=== PATIENT | female | born 1960 | race African-American/Black ===

== ENCOUNTER 2018-06-03 09:30 | Day surgery (SDC) | payer BC, MEDICARE ==
[2018-06-01 15:50] VITALS: BP 148/79
[2018-06-01 15:59] LABS: BASOPHILS % (AUTO) 0.4 % (0.0-5.0); EOSINOPHILS % (AUTO) 2.5 % (0.0-8.0); HEMATOCRIT 29.5 % (36-48); LYMPHOCYTES % (AUTO) 28.3 % (21.0-51.0); MEAN CORPUSCULAR HEMOGLOBIN 30.2 pg (27.0-33.0); MEAN CORPUSCULAR VOLUME 94.2 fL (79-99); MONOCYTES % (AUTO) 11.1 % (3.0-13.0); NEUTROPHILS % (AUTO) 57.7 % (40.0-77.0); NUCLEATED RED BLOOD CELLS 0.8 % (0.0-0.19); PLATELET COUNT (AUTO) 139 K/uL (130-400); RED BLOOD CELL COUNT(AUTO) 3.13 MIL/uL (4.00-5.50); RED CELL DISTRIBUTION WIDTH 18.2 % (11.0-15.5); WHITE BLOOD COUNT (AUTO) 4.8 K/uL (4.8-10.8)
[2018-06-01 16:02] LABS: APPEARANCE,URINE Clear (CLEAR); BILIRUBIN,URINE Negative (NEGATIVE); COLOR,URINE Yellow (YELLOW); GLUCOSE, URINE (UA) TRACE mg/dL (NEGATIVE); KETONES,URINE Negative (NEGATIVE); LEUKOCYTE ESTERASE ,URINE Negative (NEGATIVE); NITRATE,URINE Negative (NEGATIVE); OCCULT BLOOD,URINE Trace (NEGATIVE); PH,URINE >=9.0 (5.0-8.0); PROTEIN,URINE POS 2+ (NEGATIVE); UROBILINOGEN,URINE 0.2 mg/dL (0.2-1.0)
[2018-06-01 16:10] LABS: CREATININE 6.9 mg/dL (0.5-1.5); POTASSIUM 3.3 mmol/L (3.5-5.1)
[2018-06-01 16:12] LABS: INR 0.95 (0.85-1.15); PARTIAL THROMBOPLASTIN TIME 26.6 SEC (26.3-35.5)
[2018-06-01 16:18] LABS: BACTERIA,URINE None Seen /HPF (None Seen); RBC,URINE 0-1 /HPF (0-1); SQUAMOUS EPITHELIAL CELL,UR Few /HPF (0-2); WBC,URINE None Seen /HPF (0-1)
[2018-06-03] VITALS (10 sets, daily range): BP systolic 122–183; BP diastolic 71–90
[~2018-06-03] VITALS: Ht 165.1 cm; Wt 69.4 kg
[~2018-06-03 09:30] MED LIST: AEC81 PO; CLOP75TA14 PO; OMEP20TA25 PO; PRAV40TA3 PO; SODIUM CHLORIDE 0.9% 1000ML 1,000 ML IV SCH; metoprolol PO
[2018-06-03] MEDS ORDERED: IOHEXOL 350 MG/ML 100ML INFUS..BTL IV ONE (12:15)
[2018-06-03] MEDS ORDERED: NITROGLYCERIN 5 MG/ML 10 ML VIAL IV ONE (12:15)
[2018-06-03] MEDS ORDERED: BIVALIRUDIN 250 MG/VIAL IV ONE (12:15)
[2018-06-03] MEDS ORDERED: IOHEXOL-350 50ML VIAL IV ONE (12:16)
[2018-06-03] MEDS ORDERED: LIDOCAINE HCL 2% 20ML ONE (12:16)
[2018-06-03] MEDS ORDERED: MIDAZOLAM HCL 1 MG/ML 2ML VIAL ONE (12:30)
[2018-06-03] MEDS ORDERED: LABETALOL HCL 5 MG/ML 20ML VIAL IV ONE (13:11)
[2018-06-03] MEDS ORDERED: AMLODIPINE BESYLATE 5 MG TAB PO ONE (14:49)
[2018-06-03] MEDS ORDERED: AMLODIPINE BESYLATE 5 MG TAB PO SCH (15:15)
== END 2018-06-03 18:08 | disposition home or self-care (01) ==
LOC: DAH 09:30
PROVIDERS: ATTEND Internal Medicine Cardiovascular Disease
DX: I25.10 Atherosclerotic heart disease of native coronary artery without angina pectoris (principal); Z95.5 Presence of coronary angioplasty implant and graft; Z98.890 Other specified postprocedural states; Z79.899 Other long term (current) drug therapy; I24.9 Acute ischemic heart disease, unspecified; I13.2 Hypertensive heart and chronic kidney disease with heart failure and with stage 5 chronic kidney disease, or end stage renal disease; N18.6 End stage renal disease; I50.32 Chronic diastolic (congestive) heart failure; Z99.2 Dependence on renal dialysis; Z88.0 Allergy status to penicillin; Z90.710 Acquired absence of both cervix and uterus; Z98.51 Tubal ligation status; D69.6 Thrombocytopenia, unspecified; E78.5 Hyperlipidemia, unspecified; M32.9 Systemic lupus erythematosus, unspecified
CPT/HCPCS: 36415; 71045; 80048; 81001; 85025; 85610; 85730; 93005; 93458; A4606; C1760; C1894; J1644; J2250; J3490 ×3; J7030; Q9965; Q9967 ×2; 99156; 99157; J0583

== ENCOUNTER 2021-06-29 11:45 | Emergency (ER) | payer MEDICARE, OTHER ==
[~2021-06-29] VITALS: Ht 165.1 cm; Wt 63.5 kg
[~2021-06-29 11:45] MED LIST changes: -CLOP75TA14 PO; -SODIUM CHLORIDE 0.9% 1000ML 1,000 ML IV SCH
[2021-06-29] MEDS ORDERED: 0.9% NACL 250ML 250 ML IV SCH (12:00)
[2021-06-29] MEDS ORDERED: LORAZEPAM 2 MG/ML 1 ML VIAL IVP ONE (12:00)
[2021-06-29 12:04] LABS: BASOPHILS % (AUTO) 0.4 % (0.0-5.0); EOSINOPHILS % (AUTO) 2.1 % (0.0-8.0); LYMPHOCYTES % (AUTO) 27.8 % (21.0-51.0); MEAN CORPUSCULAR HEMOGLOBIN 28.9 pg (27.0-33.0); MEAN CORPUSCULAR HGB CONC 31.7 g/dL (32.0-36.0); MEAN CORPUSCULAR VOLUME 91.1 fL (79-99); MONOCYTES % (AUTO) 12.9 % (3.0-13.0); NEUTROPHILS % (AUTO) 55.8 % (40.0-77.0); PLATELET COUNT (AUTO) 250 K/uL (130-400); RED BLOOD CELL COUNT(AUTO) 3.95 MIL/uL (4.00-5.50); WHITE BLOOD COUNT (AUTO) 5.2 K/uL (4.8-10.8)
[2021-06-29 12:19] LABS: CREATININE 6.1 mg/dL (0.5-1.5)
[2021-06-29 12:24] LABS: BILIRUBIN,TOTAL 0.3 mg/dL (0.2-1.0); TOTAL PROTEIN, SERUM 8.6 g/dL (6.0-8.3)
[2021-06-29] MEDS ORDERED: HYDR-3421 PO (13:25)
[2021-06-29] MEDS ORDERED: CYCL10TA16 PO (13:25)
[2021-06-29] MEDS ORDERED: ACET-2247 PO (13:25)
[2021-06-29] MEDS ORDERED: LIDOP TP (13:25)
[2021-06-29 14:07] VITALS: BP 95/53
== END 2021-06-29 14:30 | disposition home or self-care (01) ==
LOC: EDH 11:45
DX: S16.1XXA Strain of muscle, fascia and tendon at neck level, initial encounter (principal); F41.9 Anxiety disorder, unspecified; I12.0 Hypertensive chronic kidney disease with stage 5 chronic kidney disease or end stage renal disease; N18.6 End stage renal disease; D63.1 Anemia in chronic kidney disease; E78.5 Hyperlipidemia, unspecified; I25.2 Old myocardial infarction; Z88.0 Allergy status to penicillin; Z79.82 Long term (current) use of aspirin; Z79.899 Other long term (current) drug therapy; Z90.49 Acquired absence of other specified parts of digestive tract; Z95.5 Presence of coronary angioplasty implant and graft; Z99.2 Dependence on renal dialysis; X58.XXXA Exposure to other specified factors, initial encounter; Y93.89 Activity, other specified; Y92.89 Other specified places as the place of occurrence of the external cause; Y99.8 Other external cause status
CPT/HCPCS: 36415; 71045; 80053; 84484; 85025; 93005; 96374; 99285; J2060

== ENCOUNTER 2021-08-18 18:09 | Emergency (ER) | payer OTHER ==
[~2021-08-18] VITALS: Ht 162.6 cm; Wt 64.9 kg
[~2021-08-18 18:09] MED LIST changes: +ACET-2247 PO; +CYCL10TA16 PO; +HYDR-3421 PO; +LIDOP TP
[2021-08-18] MEDS ORDERED: PHENAZOPYRIDINE HCL 200 MG TABLET PO ONE (18:30)
[2021-08-18 19:21] LABS: APPEARANCE,URINE TURBID (CLEAR); BILIRUBIN,URINE NEGATIVE (NEGATIVE); COLOR,URINE RED (YELLOW); GLUCOSE, URINE (UA) 100 mg/dL (NEGATIVE); KETONES,URINE NEGATIVE (NEGATIVE); LEUKOCYTE ESTERASE ,URINE TRACE (NEGATIVE); NITRATE,URINE POSITIVE (NEGATIVE); OCCULT BLOOD,URINE LARGE (NEGATIVE); PROTEIN,URINE >=300 mg/dL (NEGATIVE); UROBILINOGEN,URINE 0.2 mg/dL (0.2-1.0)
[2021-08-18] MEDS ORDERED: CEFTRIAXONE 1G VIAL IM ONE (19:30)
[2021-08-18 19:39] LABS: RBC,URINE TNTC /HPF (0-1)
[2021-08-18] MEDS ORDERED: CEPH500B PO (19:39)
[2021-08-18] MEDS ORDERED: PHEN-847 PO (19:39)
[2021-08-18 19:40] LABS: BACTERIA,URINE Few /HPF (None Seen)
[2021-08-18 19:43] LABS: SQUAMOUS EPITHELIAL CELL,UR Few /HPF (0-2)
[2021-08-18 20:15] VITALS: BP 156/87
[2021-08-25] MEDS ORDERED: CARV12.511 PO (17:15)
[2021-08-25] MEDS ORDERED: AMLO-258 PO (17:15)
[2021-08-25] MEDS ORDERED: FERR210T PO (17:16)
[2021-08-25] MEDS ORDERED: CLON0.1T PO (17:16)
[2021-08-25] MEDS ORDERED: HYDR200T4 PO (17:16)
[2021-08-25] MEDS ORDERED: FOLI1TAB61 PO (17:16)
[2021-08-25] MEDS ORDERED: ROPI0.5T7 PO (17:16)
[2021-08-25] MEDS ORDERED: PHOSLOC PO (17:16)
[2021-08-25] MEDS ORDERED: MONT-39 PO (17:16)
[2021-08-28] MEDS ORDERED: AMIO200T44 PO (09:39)
[2021-08-28] MEDS ORDERED: CARV6.2579 PO (09:39)
[2021-08-28] MEDS ORDERED: LEVO500T90 PO (09:39)
[2021-08-28] MEDS ORDERED: APIX5TAB PO (09:47)
== END 2021-08-18 20:20 | disposition home or self-care (01) ==
LOC: EDH 18:09
DX: N39.0 Urinary tract infection, site not specified (principal); E78.00 Pure hypercholesterolemia, unspecified; I10 Essential (primary) hypertension; Z79.82 Long term (current) use of aspirin; Z79.899 Other long term (current) drug therapy; Z88.0 Allergy status to penicillin; Z90.49 Acquired absence of other specified parts of digestive tract
CPT/HCPCS: 81001; 87088; 87486; 87797; 96372; 99283; J0696

== ENCOUNTER 2021-08-30 15:10 | Observation (INO) | payer OTHER ==
[~2021-08-30] VITALS: Ht 157.5 cm; Wt 61.3 kg
[~2021-08-30 15:10] MED LIST changes: -ACET-2247 PO; -AEC81 PO; +AMIO200T44 PO; +APIX5TAB PO; +CARV6.2579 PO; -CYCL10TA16 PO; +FERR210T PO; +FOLI1TAB61 PO; -HYDR-3421 PO; +HYDR200T4 PO; +LEVO500T90 PO; -LIDOP TP; +MONT-39 PO; +PHOSLOC PO; -PRAV40TA3 PO; +ROPI0.5T7 PO; -metoprolol PO
[2021-08-30 15:24] LABS: BASOPHILS % (AUTO) 0.6 % (0.0-5.0); EOSINOPHILS % (AUTO) 0.2 % (0.0-8.0); HEMATOCRIT 31.3 % (36-48); LYMPHOCYTES % (AUTO) 20.9 % (21.0-51.0); MEAN CORPUSCULAR HEMOGLOBIN 28.7 pg (27.0-33.0); MEAN CORPUSCULAR HGB CONC 31.3 g/dL (32.0-36.0); MEAN CORPUSCULAR VOLUME 91.8 fL (79-99); MONOCYTES % (AUTO) 13.7 % (3.0-13.0); NEUTROPHILS % (AUTO) 63.4 % (40.0-77.0); NUCLEATED RED BLOOD CELLS 0.7 % (0.0-0.19); PLATELET COUNT (AUTO) 344 K/uL (130-400); RED BLOOD CELL COUNT(AUTO) 3.41 MIL/uL (4.00-5.50); RED CELL DISTRIBUTION WIDTH 14.8 % (11.0-15.5); WHITE BLOOD COUNT (AUTO) 8.5 K/uL (4.8-10.8)
[2021-08-30 15:37] LABS: INR 1.16 (0.85-1.15); PROTHROMBIN TIME 12.5 SEC (9.6-11.6)
[2021-08-30 15:38] LABS: PARTIAL THROMBOPLASTIN TIME 32.4 SEC (26.3-35.5)
[2021-08-30 15:45] LABS: ALBUMIN 2.6 g/dL (3.5-5.0); BILIRUBIN,TOTAL 0.5 mg/dL (0.2-1.0); POTASSIUM 4.9 mmol/L (3.5-5.1); TOTAL PROTEIN, SERUM 8.6 g/dL (6.0-8.3)
[2021-08-30 15:52] LABS: CREATININE 8.3 mg/dL (0.5-1.5)
[2021-08-30] MEDS ORDERED: MORPHINE 2 MG SYG ONE (15:53)
[2021-08-30] MEDS ORDERED: ONDANSETRON 4MG INJ ONE (15:53)
[2021-08-30 16:00] LABS: B-TYPE NATRIURETIC PEPTIDE > 5000 pg/mL (0-100)
[2021-08-30] MEDS ORDERED: MORPHINE 2 MG SYG IVP ONE (16:00)
[2021-08-30] MEDS ORDERED: 0.9% NACL 250ML 250 ML IV ONE (16:00)
[2021-08-30] MEDS ORDERED: ONDANSETRON 4MG INJ IVP ONE (16:00)
[2021-08-30] MEDS ORDERED: ASPIRIN 81 MG EC TAB PO ONE (17:00)
[2021-08-30] MEDS ORDERED: LEVOFLOXACIN 500 MG TABLET PO SCH (18:00)
[2021-08-30] MEDS ORDERED: NITROGLYCERIN 0.4 MG SL TAB SL PRN (18:00)
[2021-08-30] MEDS ORDERED: AMIODARONE 900MG VIAL 150 MG in DEXTROSE 5%-WATER 100 ML IV SCH (19:10)
[2021-08-30 19:20] LABS: CHOLESTEROL 161 mg/dL (<200); HDL CHOLESTEROL 50 mg/dL (35-85); LDL DIRECT 92 mg/dL (0-99); TRIGLYCERIDES 79 mg/dL (30-200)
[2021-08-30] MEDS ORDERED: PANTOPRAZOLE 40 MG TAB DR PO SCH (19:30)
[2021-08-30] MEDS ORDERED: APIXABAN 2.5 MG TABLET PO ONE (19:49)
[2021-08-30] MEDS: APIXABAN 5 MG TABLET PO SCH (19:50)
[2021-08-30] MEDS: METOPROLOL TARTRATE 50 MG TAB PO SCH (20:14)
[2021-08-30] MEDS ORDERED: AMIODARONE 150MG VIAL IV ONE (21:00)
[2021-08-30 22:25] VITALS: BP 120/68
[2021-08-30] MEDS ORDERED: METO50TA18 PO (22:37)
[2021-08-31] VITALS (20 sets, daily range): BP systolic 104–142; BP diastolic 54–80
[2021-08-31] MEDS: FERRIC CITRATE 210 MG PO SCH ×3 (06:35→17:00)
[2021-08-31] MEDS: CALCIUM AC 667MG CAP PO SCH ×3 (07:05→16:39)
[2021-08-31 08:19] LABS: BASOPHILS % (AUTO) 0.9 % (0.0-5.0); EOSINOPHILS % (AUTO) 0.9 % (0.0-8.0); HEMATOCRIT 29.1 % (36-48); LYMPHOCYTES % (AUTO) 24.3 % (21.0-51.0); MEAN CORPUSCULAR HEMOGLOBIN 28.5 pg (27.0-33.0); MEAN CORPUSCULAR HGB CONC 31.6 g/dL (32.0-36.0); MEAN CORPUSCULAR VOLUME 90.1 fL (79-99); MONOCYTES % (AUTO) 15.4 % (3.0-13.0); NEUTROPHILS % (AUTO) 56.9 % (40.0-77.0); NUCLEATED RED BLOOD CELLS 0.3 % (0.0-0.19); PLATELET COUNT (AUTO) 280 K/uL (130-400); RED BLOOD CELL COUNT(AUTO) 3.23 MIL/uL (4.00-5.50); RED CELL DISTRIBUTION WIDTH 14.7 % (11.0-15.5); WHITE BLOOD COUNT (AUTO) 9.2 K/uL (4.8-10.8)
[2021-08-31 08:29] LABS: MAGNESIUM 2.4 mg/dL (1.80-2.40); POTASSIUM 5.2 mmol/L (3.5-5.1)
[2021-08-31 08:41] LABS: CREATININE 10.3 mg/dL (0.5-1.5)
[2021-08-31] MEDS ORDERED: AMIO200T44 PO (08:48)
[2021-08-31] MEDS ORDERED: METO50TA18 PO (08:48)
[2021-08-31] MEDS ORDERED: LEVOFLOXACIN 500 MG TABLET PO SCH (09:00)
[2021-08-31] MEDS: METOPROLOL TARTRATE 50 MG TAB PO SCH ×2 (09:00→22:44)
[2021-08-31] MEDS: AMIODARONE 200 MG TABLET PO SCH ×2 (09:00→22:44)
[2021-08-31] MEDS: Vitamin B Complex/Vit C/Folic Acid PO SCH (11:04)
[2021-08-31] MEDS: APIXABAN 5 MG TABLET PO SCH ×2 (11:05→22:44)
[2021-08-31] MEDS: MONTELUKAST SODIUM 10 MG TAB PO SCH (11:06)
[2021-08-31] MEDS: PANTOPRAZOLE 40 MG TAB DR PO SCH (11:06)
[2021-08-31] MEDS ORDERED: MIDODRINE HCL 5 MG TABLET PO PRN (16:30)
[2021-08-31] MEDS ORDERED: EPOETIN ALFA-EPBX (ESRD) 10,000 UNIT/ML VIAL IV ONE (21:00)
[2021-09-01 04:19] VITALS: BP 114/65
[2021-09-01] MEDS: HYDROMORPHONE 0.5 MG SYG (0.5MG/0.5ML) IVP PRN ×2 (05:28→11:55)
[2021-09-01 05:33] LABS: HEMATOCRIT 28.2 % (36-48); MEAN CORPUSCULAR HEMOGLOBIN 28.1 pg (27.0-33.0); MEAN CORPUSCULAR HGB CONC 31.2 g/dL (32.0-36.0); MEAN CORPUSCULAR VOLUME 90.1 fL (79-99); NUCLEATED RED BLOOD CELLS 1.4 % (0.0-0.19); PLATELET COUNT (AUTO) 305 K/uL (130-400); RED BLOOD CELL COUNT(AUTO) 3.13 MIL/uL (4.00-5.50); RED CELL DISTRIBUTION WIDTH 14.7 % (11.0-15.5); WHITE BLOOD COUNT (AUTO) 7.6 K/uL (4.8-10.8)
[2021-09-01 05:54] LABS: CREATININE 6.8 mg/dL (0.5-1.5); PHOSPHORUS 4.2 mg/dL (2.5-4.9); POTASSIUM 4.1 mmol/L (3.5-5.1)
[2021-09-01 06:05] LABS: BAND NEUTROPHILS % (MANUAL) 1 % (0-2); BASOPHILS % (MANUAL) 2 % (0-2); EOSINOPHILS % (MANUAL) 1 % (1-6); LYMPHOCYTES % (MANUAL) 30 % (22-44); MAN.DIFF COMMENT-IMPRESSION MANUAL DIFFERENTIAL; MONOCYTES % (MANUAL) 17 % (2-9); SEGMENTED NEUTROPHILS % 49 % (40-70)
[2021-09-01] MEDS: FERRIC CITRATE 210 MG PO SCH ×2 (07:30→10:32)
[2021-09-01 07:43] VITALS: BP 94/59
[2021-09-01] MEDS: AMIODARONE 200 MG TABLET PO SCH (08:19)
[2021-09-01] MEDS: Vitamin B Complex/Vit C/Folic Acid PO SCH (08:19)
[2021-09-01] MEDS: PANTOPRAZOLE 40 MG TAB DR PO SCH (08:19)
[2021-09-01] MEDS: APIXABAN 5 MG TABLET PO SCH (08:19)
[2021-09-01] MEDS: CALCIUM AC 667MG CAP PO SCH ×2 (08:20→11:50)
[2021-09-01] MEDS: MONTELUKAST SODIUM 10 MG TAB PO SCH (08:20)
[2021-09-01] MEDS: METOPROLOL TARTRATE 50 MG TAB PO SCH (09:00)
[2021-09-01 12:00] VITALS: BP 96/53
[2021-09-01] MEDS ORDERED: PHENAZOPYRIDINE HCL 200 MG TABLET PO ONE (13:30)
[2021-09-05] MEDS ORDERED: D-ME118S47 PO (13:10)
== END 2021-09-01 15:15 | disposition home or self-care (01) ==
LOC: EDH 15:13 → INTOOBSV 18:16 → EDHIP 18:16 → 4CH 21:25
PROVIDERS: ADMIT Hospitalist; ATTEND Hospitalist
DX: I48.0 Paroxysmal atrial fibrillation (principal); I48.20 Chronic atrial fibrillation, unspecified; R07.89 Other chest pain; I24.8 Other forms of acute ischemic heart disease; J96.01 Acute respiratory failure with hypoxia; J81.1 Chronic pulmonary edema; I25.10 Atherosclerotic heart disease of native coronary artery without angina pectoris; I13.2 Hypertensive heart and chronic kidney disease with heart failure and with stage 5 chronic kidney disease, or end stage renal disease; E11.22 Type 2 diabetes mellitus with diabetic chronic kidney disease; I50.32 Chronic diastolic (congestive) heart failure; N18.6 End stage renal disease; D63.1 Anemia in chronic kidney disease; M32.9 Systemic lupus erythematosus, unspecified; D69.3 Immune thrombocytopenic purpura; E78.5 Hyperlipidemia, unspecified; I42.9 Cardiomyopathy, unspecified; Z86.2 Personal history of diseases of the blood and blood-forming organs and certain disorders involving the immune mechanism; Z87.01 Personal history of pneumonia (recurrent); Z79.82 Long term (current) use of aspirin; Z79.899 Other long term (current) drug therapy; Z90.81 Acquired absence of spleen; Z90.710 Acquired absence of both cervix and uterus; Z91.19 Patient's noncompliance with other medical treatment and regimen; Z95.5 Presence of coronary angioplasty implant and graft; Z88.0 Allergy status to penicillin; Z99.2 Dependence on renal dialysis
CPT/HCPCS: 36415 ×3; 71045; 80048 ×2; 80053; 80061; 82550; 83735; 83880; 84100; 84145; 84484 ×3; 85025 ×3; 85610; 85651; 85730; 86140; 87077; 87088; 87186; 93005 ×2; 94760 ×2; 96374; 96375 ×3; 96376; 99285; G0378 ×23; J0282; J1170 ×2; J2405; J7060; Q5105; 90935

== ENCOUNTER 2021-10-04 23:02 | Inpatient (IN) | payer OTHER ==
[~2021-10-04] VITALS: Ht 165.1 cm; Wt 57.7 kg
[~2021-10-04 23:02] MED LIST changes: -AMIO200T44 PO; +AMIO200T68 PO; +Auryxia PO; -CARV6.2579 PO; -FERR210T PO; -LEVO500T90 PO; +METO50TA18 PO; +OMEP20TA20 PO; -OMEP20TA25 PO
[2021-10-04 23:48] LABS: BASOPHILS % (AUTO) 0.2 % (0.0-5.0); EOSINOPHILS % (AUTO) 1.4 % (0.0-8.0); HEMATOCRIT 35.3 % (36-48); LYMPHOCYTES % (AUTO) 16.1 % (21.0-51.0); MEAN CORPUSCULAR HEMOGLOBIN 29.9 pg (27.0-33.0); MEAN CORPUSCULAR HGB CONC 32.6 g/dL (32.0-36.0); MEAN CORPUSCULAR VOLUME 91.7 fL (79-99); MONOCYTES % (AUTO) 10.5 % (3.0-13.0); NEUTROPHILS % (AUTO) 71.4 % (40.0-77.0); NUCLEATED RED BLOOD CELLS 0.3 % (0.0-0.19); PLATELET COUNT (AUTO) 284 K/uL (130-400); RED BLOOD CELL COUNT(AUTO) 3.85 MIL/uL (4.00-5.50); RED CELL DISTRIBUTION WIDTH 17.3 % (11.0-15.5); WHITE BLOOD COUNT (AUTO) 9.3 K/uL (4.8-10.8)
[2021-10-05] VITALS (19 sets, daily range): BP systolic 95–174; BP diastolic 57–100
[2021-10-05 00:14] LABS: B-TYPE NATRIURETIC PEPTIDE 2970 pg/mL (0-100)
[2021-10-05 00:14] LABS: APPEARANCE,URINE CLOUDY (CLEAR); BILIRUBIN,URINE NEGATIVE (NEGATIVE); COLOR,URINE ORANGE (YELLOW); GLUCOSE, URINE (UA) NEGATIVE (NEGATIVE); KETONES,URINE NEGATIVE (NEGATIVE); LEUKOCYTE ESTERASE ,URINE LARGE (NEGATIVE); NITRATE,URINE NEGATIVE (NEGATIVE); OCCULT BLOOD,URINE LARGE (NEGATIVE); PROTEIN,URINE >=300 mg/dL (NEGATIVE); UROBILINOGEN,URINE 0.2 mg/dL (0.2-1.0)
[2021-10-05 00:20] LABS: ALBUMIN 2.6 g/dL (3.5-5.0); BILIRUBIN,TOTAL 0.5 mg/dL (0.2-1.0); MAGNESIUM 2.5 mg/dL (1.80-2.40); PHOSPHORUS 5.1 mg/dL (2.5-4.9); POTASSIUM 4.2 mmol/L (3.5-5.1); TOTAL PROTEIN, SERUM 7.6 g/dL (6.0-8.3)
[2021-10-05 00:22] LABS: CREATININE 9.2 mg/dL (0.5-1.5)
[2021-10-05 00:25] LABS: BACTERIA,URINE Many /HPF (None Seen); RBC,URINE 51-100 /HPF (0-1); WBC,URINE TNTC /HPF (0-1)
[2021-10-05 00:26] LABS: SQUAMOUS EPITHELIAL CELL,UR Few /HPF (0-2)
[2021-10-05] MEDS ORDERED: ONDANSETRON 4MG INJ ONE (00:50)
[2021-10-05] MEDS ORDERED: MORPHINE 2 MG SYG ONE (00:50)
[2021-10-05] MEDS ORDERED: CALCITONIN 400 UNIT VIAL SQ SCH (01:00)
[2021-10-05] MEDS ORDERED: ONDANSETRON 4MG INJ IVP ONE (01:00)
[2021-10-05] MEDS ORDERED: MORPHINE 2 MG SYG IVP ONE (01:00)
[2021-10-05] MEDS ORDERED: 0.9% NACL 250ML 250 ML IV ONE (01:00)
[2021-10-05 01:47] LABS: ABG BASE EXCESS 0.8 mmol/L (-2.0-3.0); ABG HCO3 24.3 mmol/L (21.0-28.0); ABG PCO2 36 mmHg (32-45)
[2021-10-05] MEDS ORDERED: IOHEXOL-350 75 ML VIAL IV ONE (02:15)
[2021-10-05] MEDS ORDERED: MORPHINE 2 MG SYG IV PRN (03:30)
[2021-10-05] MEDS ORDERED: ONDANSETRON 4MG INJ IV PRN (03:30)
[2021-10-05] MEDS ORDERED: ACETAMINOPHEN 325 MG TAB PO PRN ×3 (03:30→07:30)
[2021-10-05 05:11] LABS: BASOPHILS % (AUTO) 0.1 % (0.0-5.0); EOSINOPHILS % (AUTO) 1.2 % (0.0-8.0); HEMATOCRIT 30.7 % (36-48); LYMPHOCYTES % (AUTO) 19.1 % (21.0-51.0); MEAN CORPUSCULAR HEMOGLOBIN 29.2 pg (27.0-33.0); MEAN CORPUSCULAR HGB CONC 32.6 g/dL (32.0-36.0); MEAN CORPUSCULAR VOLUME 89.8 fL (79-99); MONOCYTES % (AUTO) 11.7 % (3.0-13.0); NEUTROPHILS % (AUTO) 67.6 % (40.0-77.0); NUCLEATED RED BLOOD CELLS 0.3 % (0.0-0.19); PLATELET COUNT (AUTO) 259 K/uL (130-400); RED BLOOD CELL COUNT(AUTO) 3.42 MIL/uL (4.00-5.50); WHITE BLOOD COUNT (AUTO) 9.9 K/uL (4.8-10.8)
[2021-10-05 05:41] LABS: ALBUMIN 2.2 g/dL (3.5-5.0); BILIRUBIN,TOTAL 0.4 mg/dL (0.2-1.0); POTASSIUM 4.2 mmol/L (3.5-5.1); TOTAL PROTEIN, SERUM 6.4 g/dL (6.0-8.3)
[2021-10-05 05:43] LABS: CREATININE 9.4 mg/dL (0.5-1.5)
[2021-10-05 05:49] LABS: B-TYPE NATRIURETIC PEPTIDE 2210 pg/mL (0-100)
[2021-10-05 06:30] LABS: ERYTHROCYTE SEDIMENTATION RATE 60 MM/HR (0-30)
[2021-10-05] MEDS ORDERED: HYDROMORPHONE 0.5 MG SYG (0.5MG/0.5ML) IVP PRN (07:30)
[2021-10-05] MEDS: HYDROMORPHONE 1 MG INJ IVP PRN ×2 (08:32→18:47)
[2021-10-05] MEDS ORDERED: LEVOFLOXACIN 500 MG TABLET PO SCH (18:00)
[2021-10-05] MEDS ORDERED: IPRATROPIUM 0.5 MG/2.5 ML INH IH PRN (18:00)
[2021-10-05] MEDS: METOPROLOL TARTRATE 50 MG TAB PO SCH (21:42)
[2021-10-05] MEDS: APIXABAN 5 MG TABLET PO SCH (21:43)
[2021-10-06 03:32] VITALS: BP 98/73
[2021-10-06 04:36] LABS: HEMATOCRIT 33.2 % (36-48); MEAN CORPUSCULAR HEMOGLOBIN 28.8 pg (27.0-33.0); MEAN CORPUSCULAR HGB CONC 30.4 g/dL (32.0-36.0); MEAN CORPUSCULAR VOLUME 94.6 fL (79-99); NUCLEATED RED BLOOD CELLS 0.7 % (0.0-0.19); PLATELET COUNT (AUTO) 176 K/uL (130-400); RED BLOOD CELL COUNT(AUTO) 3.51 MIL/uL (4.00-5.50); RED CELL DISTRIBUTION WIDTH 17.3 % (11.0-15.5); WHITE BLOOD COUNT (AUTO) 8.7 K/uL (4.8-10.8)
[2021-10-06 05:21] LABS: LYMPHOCYTES % (MANUAL) 33 % (22-44); MAN.DIFF COMMENT-IMPRESSION MANUAL DIFFERENTIAL; MONOCYTES % (MANUAL) 3 % (2-9); SEGMENTED NEUTROPHILS % 64 % (40-70)
[2021-10-06 05:22] LABS: PLATELET MORPHOLOGY COMMENT ADEQUATE
[2021-10-06] MEDS: CALCIUM AC 667MG CAP PO SCH ×3 (07:30→16:13)
[2021-10-06] MEDS: AURYXIA 210 MG PO SCH ×3 (08:00→16:13)
[2021-10-06 08:28] VITALS: BP 84/56
[2021-10-06] MEDS ORDERED: MONTELUKAST SODIUM 10 MG TAB PO SCH (09:00)
[2021-10-06] MEDS ORDERED: PANTOPRAZOLE 40 MG/VIAL IVP SCH (09:00)
[2021-10-06] MEDS ORDERED: ROPINIROLE HCL 0.25 MG TABLET PO SCH (09:00)
[2021-10-06] MEDS ORDERED: AMIODARONE 200 MG TABLET PO SCH (09:00)
[2021-10-06] MEDS ORDERED: Vitamin B Complex/Vit C/Folic Acid PO SCH (09:00)
[2021-10-06] MEDS ORDERED: HYDROXYCHLOROQUINE SULFATE 200 MG TAB PO SCH (09:00)
[2021-10-06] MEDS: METOPROLOL TARTRATE 50 MG TAB PO SCH ×2 (09:28→20:36)
[2021-10-06] MEDS: APIXABAN 5 MG TABLET PO SCH ×2 (09:28→20:12)
[2021-10-06 12:30] VITALS: BP 86/45
[2021-10-06] MEDS: HYDROMORPHONE 1 MG INJ IVP PRN (14:33)
[2021-10-06 15:42] LABS: HEPATITIS B SURFACE ANTIGEN Non-Reactive (Negative)
[2021-10-06 16:30] VITALS: BP 62/31
[2021-10-06] MEDS ORDERED: LACTATED RINGERS 1000ML IV SCH (17:00)
[2021-10-06] MEDS ORDERED: MIDODRINE HCL 5 MG TABLET PO SCH (17:00)
[2021-10-06] MEDS ORDERED: MIDODRINE HCL 5 MG TABLET ONE (17:06)
[2021-10-06 20:04] VITALS: BP 92/56
[2021-10-06 23:52] VITALS: BP 115/56
[2021-10-07 03:47] VITALS: BP 138/60
[2021-10-07 04:22] LABS: HEMATOCRIT 38.1 % (36-48); MEAN CORPUSCULAR HEMOGLOBIN 28.7 pg (27.0-33.0); MEAN CORPUSCULAR VOLUME 92.7 fL (79-99); NUCLEATED RED BLOOD CELLS 2.8 % (0.0-0.19); PLATELET COUNT (AUTO) 218 K/uL (130-400); RED BLOOD CELL COUNT(AUTO) 4.11 MIL/uL (4.00-5.50); RED CELL DISTRIBUTION WIDTH 16.6 % (11.0-15.5); WHITE BLOOD COUNT (AUTO) 14.9 K/uL (4.8-10.8)
[2021-10-07 04:40] LABS: POTASSIUM 6.3 mmol/L (3.5-5.1)
[2021-10-07 04:41] LABS: CREATININE 9.1 mg/dL (0.5-1.5)
[2021-10-07 04:52] LABS: B-TYPE NATRIURETIC PEPTIDE > 5000 pg/mL (0-100)
[2021-10-07] MEDS ORDERED: DEXTROSE 50%-WATER 50 ML DISP.SYRIN IV ONE ×2 (05:07→05:30)
[2021-10-07] MEDS: CALCIUM AC 667MG CAP PO SCH (05:49)
[2021-10-07 07:26] VITALS: BP 166/89
[2021-10-07] MEDS ORDERED: LEVOFLOXACIN 500 MG/D5W 100 ML 100 ML IV SCH (07:30)
[2021-10-09] MEDS ORDERED: LEVOFLOXACIN 250 MG/D5W 50ML 50 ML IVPB SCH (09:00)
== END 2021-10-07 08:33 | DRG 640 ==
LOC: EDH 23:02 → EDHIP 10-05 03:21 → 2AH 10-05 05:09
PROVIDERS: ADMIT Hospitalist; ATTEND Hospitalist
PROC: 5A1D70Z Performance of Urinary Filtration, Intermittent, Less than 6 Hours Per Day (ICD-10-PCS; principal; 2021-10-05)
DX: E87.70 Fluid overload, unspecified (principal); N18.6 End stage renal disease; J96.01 Acute respiratory failure with hypoxia; C78.00 Secondary malignant neoplasm of unspecified lung; I12.0 Hypertensive chronic kidney disease with stage 5 chronic kidney disease or end stage renal disease; N39.0 Urinary tract infection, site not specified; E87.5 Hyperkalemia; E83.52 Hypercalcemia; E87.1 Hypo-osmolality and hyponatremia; Z20.822 Contact with and (suspected) exposure to COVID-19; D64.9 Anemia, unspecified; E78.00 Pure hypercholesterolemia, unspecified; E78.5 Hyperlipidemia, unspecified; Z66 Do not resuscitate; I25.10 Atherosclerotic heart disease of native coronary artery without angina pectoris; I48.91 Unspecified atrial fibrillation; M32.14 Glomerular disease in systemic lupus erythematosus; Z99.2 Dependence on renal dialysis; Z51.5 Encounter for palliative care; Z88.0 Allergy status to penicillin; Z90.710 Acquired absence of both cervix and uterus; Z90.81 Acquired absence of spleen; Z85.51 Personal history of malignant neoplasm of bladder; Z95.5 Presence of coronary angioplasty implant and graft; Z91.15 Patient's noncompliance with renal dialysis; Z91.19 Patient's noncompliance with other medical treatment and regimen
CPT/HCPCS: 36415; 36600; 70450; 71045; 71275; 74177; 80048; 80053; 81001; 82803; 82947; 82948; 83690; 83735; 83880; 84100; 84145; 84484; 85025; 85027; 85651; 86704; 86706; 87040; 87077; 87088; 87186; 87340; 87635; 90935; 93005; 96361; 96374; 96375; 96376; 99291; C9113; C9803; G0378; J1170; J2405; J7050; J7070; Q9967